=== PATIENT | female | born 1945 | race Caucasian/White ===

== ENCOUNTER 2023-09-12 10:00 | Outpatient (RCR) | payer MEDICARE, SELFPAY ==
[2023-08-29 09:21] VITALS: BP 163/79; PULSE 78; RESP 18; TEMP 36.4; BMI 49.6
--- NOTE | 2023-08-29 09:48 | PCM.WC.HP ---
History of Present Illness Date of Service: 08/29/23 Chief Complaint: Posterior left lower extremity ulceration History of Wound: Patient is a 77-year-old female with PMHx of DM type II, CAD, GERD, diverticulosis of colon, HTN, mixed hyperlipidemia. In June 2023 patient was exiting car and bumped the back of her leg on the car door creating a small ulceration at the posterior aspect of the left leg. She stated the scab came off however was not healing and thus followed up with her PCP. At this time she was seen by nurse practitioner and patient informed her that she tends to get wounds anytime she bumps her legs. States site would blister after traumatic injury and open. She states this wound is tender to the touch and she has been soaking in Epsom salts. Due to failure to progress in healing of the last 5 weeks duration she was referred to the wound care center. Patient denies wearing compression stockings. She denies N/V/F/chills. She denies further complaints. PFSH Allergy/AdvReac Type Severity Reaction Status Date / Time amoxicillin Allergy Hives Verified 08/29/23 09:21 Social History Smoking Status: Never smoker ROS Constitutional Constitutional: Denies anorexia, change in weight, chills, fatigue or fever(s) Eyes Eyes: Denies blurry vision, change in vision or double vision ENT HEENT: Denies dysphagia, nasal congestion or nasal discharge Cardiovascular Cardiovascular: Denies chest pain, claudication or palpitations Respiratory/Chest Respiratory/Chest: Denies cough, shortness of breath at rest or wheezing Gastrointestinal Gastrointestinal: Denies abdominal pain, constipation, diarrhea, nausea or vomiting Genitourinary Genitourinary: Denies dysuria, hematuria or urinary urgency Musculoskeletal Musculoskeletal: Denies joint pain, joint stiffness or joint swelling Integumentary Integumentary: Denies lesions, pruritus or rash Neurologic Neurologic: Denies dizziness, numbness or seizures Psychiatric Psychiatric: Denies depression Endocrine Endocrinology: Denies cold intolerance or heat intolerance Hematologic/Lymphatic Hematologic/Lymphatic: Denies easy bleeding or easy bruising Vital Signs Vital Signs Vital Signs: 08/29/23 09:21 Temperature 97.6 F L Temperature Source Temporal Pulse Rate 78 Respiratory Rate 18 Blood Pressure 163/79 H Blood Pressure Mean 107 Blood Pressure Source Monitor Blood Pressure Position Semi-Fowlers Blood Pressure Location Left Arm Oxygen Delivery Method Room Air Weight Weight: 127.006 kg Body Mass Index (BMI) 49.6 Physical Exam Const alert, oriented x3, no apparent distress and well nourished General Appearance: cooperative HEENT normocephalic Eyes General Eye: normal appearance of both eyes Neck General: normal visual inspection Lymph Lymphatic: no lymphadenopathy noted Lymphatic Narrative: Lipolymphedema noted bilateral lower extremity Resp normal respiratory effort Cardio regular rate and regular rhythm Extremity normal capillary refill, no joint enlargement, no calf tenderness and no pedal edema Extremity Narrative: Vascular: DP and PT pulses weakly palpable secondary to soft tissue edema bilateral. Capillary fill time is adequate to the digits bilateral. Normal temperature gradient bilateral. Hair growth is absent to the digits bilateral. Dermatological: There are varicosities noted about the medial ankle and lower extremity bilateral. There is reddish discoloration/stasis dermatitis about the lower extremity at the level of the mid calf secondary to chronic venous insufficiency with hemosiderin deposition. Posterior left lower extremity there is noted to be multiple superficial excoriations secondary to traumatic injury. These ulceration sites demonstrate serous crusting secondary to continued skin weeping/drainage. No signs of infection. There is a multicolored patch noted to the lateral left lower extremity consistent with tattoo. Positive Stemmer sign bilateral second digit. There is some edema noted of the lower extremities however tissue is also dense to palpation. There is a component of Lipolymphedema of bilateral lower extremity. 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 Neurological: Motor function intact, gross sensation intact, light touch sensation intact, no focal deficits. Musculoskeletal: Muscle strength 5 of 5 age-appropriate. Decreased range of motion of the ankle joint in dorsiflexion with the knee extended without pain or crepitus bilateral. Decreased range of motion of the first metatarsophalangeal joint without pain or crepitus bilateral. Skin no rashes or lesions noted and no jaundice General Skin Exam: venous stasis and dermatitis Neuro moves all extremities Debridement Note Debridement Note No debridement was completed: No debridement was completed today Post-Debridement Measurements and Additional Note: Post-Debridement Measurements/Treatment JOSÉ LUIS - Nurse 1 - General Ulcer Assessment Start: 08/29/23 09:05 Freq: Status: Active Protocol: [email or web address] Activity Type Activity Date Activity User E-sign Co-sign Detail Recorded Client Recorded Date Recorded By Document 08/29/23 09:21 KW Desktop 08/29/23 09:27 KW Edit Result 08/29/23 09:21 KW (1) Desktop 08/29/23 09:42 KW (1) Right - Popliteal Doppler => Inaudible - Posterior Tibial Doppler => Inaudible - Hair Growth on Legs => No - Hair Growth on Toes => No - Temperature of Extremity => Cool - Capillary Refill => Less than 3 => Seconds Left - Posterior Tibial Palpable => No - Posterior Tibial Doppler => Monophasic - Dorsalis Pedis Palpable => Yes - Dorsalis Pedis Doppler => Monophasic - Extremity Color => Red,Hyperpigmented - Hair Growth on Legs => No - Hair Growth on Toes => No - Temperature of Extremity => Cool - Capillary Refill => Less than 3 => Seconds - Thick => No - Discolored => No - Deformed => No - Improper Length & Hygeine => No 08/29/23 09:21 WC - Today's Visit Information Type of service Initial Visit Arrival Mode Ambulatory Patient Identification Verified (Name & Yes ) Finger Stick Blood Sugar(mg/dl) (if 160 indicated): Blood Sugar Stated by Patient Height and Weight Height 5 ft 3 in Weight 127.006 kg Weight in Pounds 280.0 lbs Weight Measurement Method Estimated by Patient Body Mass Index (BMI) 49.6 BMI Classification Obese BSA - Napoleon 2.23 Vital Signs Temperature (97.8 F-99.1 F) 97.6 F L Temperature Source Temporal Pulse Rate (60-100) 78 Pulse Location Monitor Respiratory Rate (12-18) 18 Respiratory rate source Observation Oxygen Delivery Method Room Air Blood Pressure (90/60-120/80) 163/79 H Blood Pressure Mean 107 Source Monitor Position Semi-Fowlers Blood Pressure Location Left Arm History Since Last Visit- (Skip if this is Patient's initial visit) Left Footwear Regular Shoe Right Footwear Regular Shoe Pain Scale: 0-10 Numeric Is Patient Pain Free? Yes Lower Extremity Assessment/ Foot Assessment/ Toe Nail Assessment Right -Popliteal Doppler Inaudible -Posterior Tibial Doppler Inaudible -Hair Growth on Legs No -Hair Growth on Toes No -Temperature of Extremity Cool -Capillary Refill Less than 3 Seconds Left -Posterior Tibial Palpable No -Posterior Tibial Doppler Monophasic -Dorsalis Pedis Palpable Yes -Dorsalis Pedis Doppler Monophasic -Extremity Color Red, Hyperpigmented -Hair Growth on Legs No -Hair Growth on Toes No -Temperature of Extremity Cool -Capillary Refill Less than 3 Seconds -Thick No -Discolored No -Deformed No -Improper Length & Hygeine No Communication Assessment Preferred language Kazakh Able to Read Yes Able to Write Yes Communication Tools None Caregiver Communication Skills No Impairment Impairment Right Hearing Abillity Normal Left Hearing Abillity Normal Visual Assistive Devices Glasses Teaching Assessment Preferences Verbal,Written, Demonstration Barriers to Learning None Readiness To Learn Excellent Willingness to Engage in Self Management High Activies Readiness to Engage in Self Management High Activities Anxiety Level Calm Cooperation Cooperative Perception Coherent Interest in Health Problem Asks Questions Education Importance Acknowledges Need Does Patient Smoke tobacco or other No substances Smoking Status Never smoker Is Patient Diabetic Yes Functional Assessment Recent Decline in Ability to Perform Denies Any Declines Assistive Device With Patient No Culture/Pentecostalism/Draw Frame Operator Cultural/Pentecostalism Needs that may affect No Treatment Plan Would you allow our hospital equipment hire manager to No meet you for the purpose of spiritual/ emotional support? Draw Frame Operator to contact place of gnosticist No WC - Nurse 1 - General Ulcer Measurement Start: 08/29/23 09:05 Freq: Status: Active Protocol: Activity Type Activity Date Activity User E-sign Co-sign Detail Recorded Client Recorded Date Recorded By Document 08/29/23 09:21 KW Desktop 08/29/23 09:27 KW 08/29/23 09:21 Wound Center Nurse 1 #1 POST LT LOWER LEG -Current Size (cm) - Length 4.5 -Current Size (cm) - Width 5 -Current Size (cm) - Depth 0.1 -Total Square Cm 22.5 -Exudate Amt Small -Exudate Type Serosanguineous -Wound Margin Indistinct, Non -Visible -Granulation Amt Large (67-100%) -Granulation Quality Pyote -Structure Exposed None/Limited to Skin Breakdown -Texture (Jewell-wound Skin Appearance) No Abnormality, Friable -Moisture (Jewell-wound Skin Appearance) Assessed -Color (Jewell-wound Skin Appearance) Assessed, Erythema -Temperature (Jewell-wound Skin No Abnormality Appearance) (Pt Warm) -Ulcer Cleansing Rinsed/ Irrigated with Saline -Foul Odor after Cleansing No -Anesthetic Used 5% Lidocaine Gel Right Calf (cm) 50.5 Right Ankle (cm) 30.5 Left Calf (cm) 52.5 Left Ankle (cm) 32 Assessment/Plan Assessment/Plan (1) Non-pressure chronic ulcer of left calf with fat layer exposed: CODE(S): L97.222 - Non-pressure chronic ulcer of left calf with fat layer exposed (2) Venous insufficiency (chronic) (peripheral): CODE(S): I87.2 - Venous insufficiency (chronic) (peripheral) (3) 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: CODE(S): I89.0 - Lymphedema, not elsewhere classified; R60.9 - Edema, unspecified (4) Bilateral edema of lower extremity: CODE(S): R60.0 - Localized edema (5) Type 2 diabetes mellitus without complications: CODE(S): E11.9 - Type 2 diabetes mellitus without complications (6) Hyperlipidemia, unspecified: CODE(S): E78.5 - Hyperlipidemia, unspecified (7) Essential (primary) hypertension: CODE(S): I10 - Essential (primary) hypertension (8) CAD (coronary artery disease): CODE(S): I25.10 - Atherosclerotic heart disease of [place] coronary artery without angina pectoris PLAN: Plan Patient seen and evaluated Previous ulceration noted to the anterior aspect/pretibial left lower extremity has healed at this time with full epithelialization. There is noted scarring secondary to the healing of the previous wound site. Skin is intact however still friable as this is new skin formation. No signs of infection. No debridement performed today. Patient is noted to have lipodermatosclerosis and component of Lipo lymphedema leading to difficulty with continued lower extremity swelling and recurrent wounds following trauma to the lower extremity. Bilateral Unna boot was applied to the lower extremities. She was instructed to not get the boots wet. Discussed if she does get them wet to return to the wound care center for dressing change and application of an Unna boot. She voices understanding of this. Discussed continued elevation to aid in edema control. Discussed once sites have healed recommendation should be considered for lymphedema pump and bilateral compression stockings. Discussed adequate protein intake to aid in wound healing. Irvin supplementation recommended. Discussed adequate diabetic diet to continue proper glycemic control. Discussed this will aid in wound healing. Encouraged daily exercise and lifestyle modification for weight reduction. Discussed continuing oral antibiotic clindamycin 300 mg 4 times daily and ciprofloxacin 500 mg twice daily to complete her 10-day course to full completion. Discussed signs and symptoms of infection to observe for. Discussed if redness continues to increase about the wound site spreading up the leg, there is purulent drainage from the wound site, increasing foul odor from the wound, or if she experiences fever greater than 101 degree accompanied by nausea, vomiting, chills that these are signs of a progressing infection and she should report to the ED to receive IV antibiotics and for further evaluation. She voices understanding of this today. The following work up and care recommendations were made: Dressing: Bilateral Unna boot dressing for compression Wash: Do not get wet Tissue growth optimization: None Offload: Continue to elevate lower extremities at all times of rest pad and protect area of the posterior left lower extremity with pillow Vascular: Weakly palpable DP and PT pulses secondary to edema however I do not feel vascular status is impacting healing. Edema: Continue to elevate bilateral lower extremities, once wounds are healed consideration should be given to compression stockings and lymphedema pump Infection: No signs of infection. Patient finishing oral antibiotic course clindamycin/ciprofloxacin and recommended to complete in its entirety Pain: May take Tylenol extra strength for any discomfort Host factors: DM type II, CAD, HTN, HLD, chronic venous insufficiency, Lipo lymphedema. I answered all the patient's questions. To return to the wound healing center in 1 week or call sooner if the patient has any questions or concerns.
[2023-09-02 11:18] VITALS: BP 157/56; PULSE 75; RESP 16; TEMP 36.5; BMI 49.6
--- NOTE | 2023-09-05 09:18 | PCM.WC.PN ---
History of Present Illness Date of Service: 09/05/23 Chief Complaint: Posterior left lower extremity ulceration History of Wound: Patient is a 77-year-old female with PMHx of DM type II, CAD, GERD, diverticulosis of colon, HTN, mixed hyperlipidemia. In June 2023 patient was exiting car and bumped the back of her leg on the car door creating a small ulceration at the posterior aspect of the left leg. She stated the scab came off however was not healing and thus followed up with her PCP. At this time she was seen by nurse practitioner and patient informed her that she tends to get wounds anytime she bumps her legs. States site would blister after traumatic injury and open. She states this wound is tender to the touch and she has been soaking in Epsom salts. Due to failure to progress in healing of the last 5 weeks duration she was referred to the wound care center. Patient denies wearing compression stockings. She denies N/V/F/chills. She denies further complaints. Subjective Subjective This is a 77-year-old female who presents to the wound care center today for follow-up of a posterior left lower extremity ulceration secondary to chronic venous stasis. She states she kept the Unna boots on and did have them changed this past Saturday. She does notice improvement in swelling today. She denies constitutional symptoms. Denies further complaints. Objective Data Objective Data Vital Signs: Vital Signs Temp Pulse Resp BP O2 Del Method 97.7 F L 75 16 157/56 H Room Air 09/02/23 11:18 09/02/23 11:18 09/02/23 11:18 09/02/23 11:18 09/02/23 11:18 Oxygen Delivery Method Room Air Weight: 127.006 kg Body Mass Index (BMI) 49.6 Physical Exam Const alert, oriented x3, no apparent distress and well nourished General Appearance: cooperative HEENT normocephalic Eyes General Eye: normal appearance of both eyes Neck General: normal visual inspection Lymph Lymphatic: no lymphadenopathy noted Lymphatic Narrative: Lipolymphedema noted bilateral lower extremity Resp normal respiratory effort Cardio regular rate and regular rhythm Extremity normal capillary refill, no joint enlargement, no calf tenderness and no pedal edema Extremity Narrative: Vascular: DP and PT pulses weakly palpable secondary to soft tissue edema bilateral. Capillary fill time is adequate to the digits bilateral. Normal temperature gradient bilateral. Hair growth is absent to the digits bilateral. Dermatological: There are varicosities noted about the medial ankle and lower extremity bilateral. There is reddish discoloration/stasis dermatitis about the lower extremity at the level of the mid calf secondary to chronic venous insufficiency with hemosiderin deposition. Posterior left lower extremity there is noted to be multiple superficial excoriations secondary to traumatic injury. These ulceration sites demonstrate serous crusting secondary to continued skin weeping/drainage. No signs of infection. There is a multicolored patch noted to the lateral left lower extremity consistent with tattoo. Positive Stemmer sign bilateral second digit. There is some edema noted of the lower extremities however tissue is also dense to palpation. There is a component of Lipolymphedema of bilateral lower extremity. 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 Neurological: Motor function intact, gross sensation intact, light touch sensation intact, no focal deficits. Musculoskeletal: Muscle strength 5 of 5 age-appropriate. Decreased range of motion of the ankle joint in dorsiflexion with the knee extended without pain or crepitus bilateral. Decreased range of motion of the first metatarsophalangeal joint without pain or crepitus bilateral. Skin no rashes or lesions noted and no jaundice General Skin Exam: venous stasis and dermatitis Neuro moves all extremities Debridement Note Debridement Note No debridement was completed: No debridement was completed today Post-Debridement Measurements and Additional Note: Post-Debridement Measurements/Treatment WC - Nurse 1 - General Ulcer Assessment Start: 08/29/23 09:05 Freq: Status: Active Protocol: .LOWEXT Activity Type Activity Date Activity User E-sign Co-sign Detail Recorded Client Recorded Date Recorded By Document 08/29/23 09:21 KW Desktop 08/29/23 09:27 KW Edit Result 08/29/23 09:21 KW (1) Desktop 08/29/23 09:42 KW Document 09/02/23 11:18 BMF Desktop 09/02/23 11:19 BMF (1) Right - Popliteal Doppler => Inaudible - Posterior Tibial Doppler => Inaudible - Hair Growth on Legs => No - Hair Growth on Toes => No - Temperature of Extremity => Cool - Capillary Refill => Less than 3 => Seconds Left - Posterior Tibial Palpable => No - Posterior Tibial Doppler => Monophasic - Dorsalis Pedis Palpable => Yes - Dorsalis Pedis Doppler => Monophasic - Extremity Color => Red,Hyperpigmented - Hair Growth on Legs => No - Hair Growth on Toes => No - Temperature of Extremity => Cool - Capillary Refill => Less than 3 => Seconds - Thick => No - Discolored => No - Deformed => No - Improper Length & Hygeine => No 08/29/23 09/02/23 09:21 11:18 WC - Today's Visit Information Type of service Initial Visit Nurse-only Visit Arrival Mode Ambulatory Ambulatory Transfer Assistance None Patient Identification Verified (Name & Yes Yes ) Patient Requires Transmission-Based No Precautions Finger Stick Blood Sugar(mg/dl) (if 160 indicated): Blood Sugar Stated by Patient Height and Weight Height 5 ft 3 in Weight 127.006 kg Weight in Pounds 280.0 lbs Weight Measurement Method Estimated by Patient Body Mass Index (BMI) 49.6 49.6 BMI Classification Obese Obese BSA - Napoleon 2.23 Vital Signs Temperature (97.8 F-99.1 F) 97.6 F L 97.7 F L Temperature Source Temporal Temporal Pulse Rate (60-100) 78 75 Pulse Location Monitor Monitor Respiratory Rate (12-18) 18 16 Respiratory rate source Observation Observation Oxygen Delivery Method Room Air Room Air Blood Pressure (90/60-120/80) 163/79 H 157/56 H Blood Pressure Mean (mm Hg) 107 89 Source Monitor Monitor Position Semi-Fowlers Sitting Blood Pressure Location Left Arm Right Forearm History Since Last Visit- (Skip if this is Patient's initial visit) Have you changed medications since your No last visit? Any new allergies or adverse reactions No Had a fall/change in ADL's that may No increase risk of falls Signs or symptoms of abuse and/or No neglect since last visit Have you been in the hospital since your No last visit? Has dressing in place as prescribed Yes Has compression in place as prescribed Yes Has offloadiing in place as prescribed N/A Experienced any changes in pain level or No management Left Footwear Regular Shoe Regular Shoe Right Footwear Regular Shoe Regular Shoe Pain Scale: 0-10 Numeric Is Patient Pain Free? Yes Yes Lower Extremity Assessment/ Foot Assessment/ Toe Nail Assessment Right -Popliteal Doppler Inaudible -Posterior Tibial Doppler Inaudible -Hair Growth on Legs No -Hair Growth on Toes No -Temperature of Extremity Cool -Capillary Refill Less than 3 Seconds Left -Posterior Tibial Palpable No -Posterior Tibial Doppler Monophasic -Dorsalis Pedis Palpable Yes -Dorsalis Pedis Doppler Monophasic -Extremity Color Red, Hyperpigmented -Hair Growth on Legs No -Hair Growth on Toes No -Temperature of Extremity Cool -Capillary Refill Less than 3 Seconds -Thick No -Discolored No -Deformed No -Improper Length & Hygeine No Communication Assessment Preferred language Hebrew Able to Read Yes Able to Write Yes Communication Tools None Caregiver Communication Skills No Impairment Impairment Right Hearing Abillity Normal Left Hearing Abillity Normal Visual Assistive Devices Glasses Teaching Assessment Preferences Verbal,Written, Demonstration Barriers to Learning None Readiness To Learn Excellent Willingness to Engage in Self Management High Activies Readiness to Engage in Self Management High Activities Anxiety Level Calm Cooperation Cooperative Perception Coherent Interest in Health Problem Asks Questions Education Importance Acknowledges Need Does Patient Smoke tobacco or other No substances Smoking Status Never smoker Is Patient Diabetic Yes Functional Assessment Recent Decline in Ability to Perform Denies Any Declines Assistive Device With Patient No 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 No WC - Nurse 1 - General Ulcer Measurement Start: 08/29/23 09:05 Freq: Status: Active Protocol: Activity Type Activity Date Activity User E-sign Co-sign Detail Recorded Client Recorded Date Recorded By Document 08/29/23 09:21 [email or web address] 08/29/23 09:27 [employer] Document 09/02/23 11:18 [facility] Desktop 09/02/23 11:19 [facility] 08/29/23 09/02/23 09:21 11:18 Wound Center Nurse 1 #1 POST LT LOWER LEG -Current Size (cm) - Length 4.5 -Current Size (cm) - Width 5 -Current Size (cm) - Depth 0.1 -Total Square Cm 22.5 -Exudate Amt Small -Exudate Type Serosanguineous -Wound Margin Indistinct, Non -Visible -Granulation Amt Large (67-100%) -Granulation Quality [place] -Structure Exposed None/Limited to Skin Breakdown -Texture (Jewell-wound Skin Appearance) No Abnormality, Friable -Moisture (Jewell-wound Skin Appearance) Assessed -Color (Jewell-wound Skin Appearance) Assessed, Erythema -Temperature (Jewell-wound Skin No Abnormality Appearance) (Pt Warm) -Ulcer Cleansing Rinsed/ Irrigated with Saline -Foul Odor after Cleansing No -Anesthetic Used 5% Lidocaine Gel Lower Limb Edema Present Yes Right Calf (cm) 50.5 48.5 Right Ankle (cm) 30.5 28.8 Left Calf (cm) 52.5 50.3 Left Ankle (cm) 32 29.3 WC - Nurse 2 - General Ulcer CM Notes Start: 08/29/23 09:05 Freq: Status: Active Protocol: Activity Type Activity Date Activity User E-sign Co-sign Detail Recorded Client Recorded Date Recorded By Document 08/29/23 09:59 [facility] Desktop 08/29/23 10:06 F 08/29/23 09:59 Wound Center Nurse 2 #1 POST LT LOWER LEG -Time 09:59 -Correct Patient Yes -Tunneling No -Undermining/Tunneling No -Circular Undermining No -Wound/Ulcer Outcome Not Healed -Bleeding Controlled with NA Pain Scale: 0-10 Numeric Is Patient Pain Free? Yes WC - Nurse 3 - General Ulcer D/C NN Start: 08/29/23 09:05 Freq: Status: Active Protocol: Activity Type Activity Date Activity User E-sign Co-sign Detail Recorded Client Recorded Date Recorded By Document 08/29/23 10:25 DL Desktop 08/29/23 10:26 DL Edit Result 08/29/23 10:25 DL (1) [id number] 09/02/23 15:13 BM[facility] Document 09/02/23 11:18 [facility] Desktop 09/02/23 11:19 BMF (1) jannette - Multi-Layered Wrap Application Multi-Layer Comp - => Unna Boot - Bilat ($) => Bilateral ($) 08/29/23 09/02/23 10:25 11:18 Wound Care Center Nurse 3 #1 POST LT LOWER LEG -Ulcer Cleansing Soap and Water -Foul Odor after Cleansing No jannette -Multi-Layered Wrap Application Unna Boot - Bilateral ($) Treatment Response Procedure Tolerated Well Vital Signs Temperature (97.8 F-99.1 F) 97.7 F L Temperature Source Temporal Pulse Rate (60-100) 75 Pulse Location Monitor Respiratory Rate (12-18) 16 Respiratory rate source Observation Oxygen Delivery Method Room Air Blood Pressure (90/60-120/80) 157/56 H Blood Pressure Mean (mm Hg) 89 Source Monitor Position Sitting Blood Pressure Location Right Forearm Pain Scale: 0-10 Numeric Is Patient Pain Free? 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: CODE(S): I89.0 - Lymphedema, not elsewhere classified; R60.9 - Edema, unspecified (4) Bilateral edema of lower extremity: CODE(S): R60.0 - Localized edema (5) Type 2 diabetes mellitus without complications: CODE(S): E11.9 - Type 2 diabetes mellitus without complications (6) Hyperlipidemia, unspecified: CODE(S): E78.5 - Hyperlipidemia, unspecified (7) Essential (primary) hypertension: CODE(S): I10 - Essential (primary) hypertension (8) CAD (coronary artery disease): CODE(S): I25.10 - Atherosclerotic heart disease of [place] coronary artery without angina pectoris PLAN: Plan Patient seen and evaluated Previous ulceration noted to the anterior aspect/pretibial left lower extremity has healed at this time with full epithelialization. There is noted scarring secondary to the healing of the previous wound site. Skin is intact however still friable as this is new skin formation. No signs of infection. No debridement performed today. There is improvement in her edema, ulceration, and surrounding tissue versus previous visit with use of Unna boot wrapping/compression. She is close to healing the ulceration. Patient is noted to have lipodermatosclerosis and component of Lipo lymphedema leading to difficulty with continued lower extremity swelling and recurrent wounds following trauma to the lower extremity. Bilateral Unna boot was applied to the lower extremities. She was instructed to not get the boots wet. Discussed if she does get them wet to return to the wound care center for dressing change and application of an Unna boot. She voices understanding of this. Discussed continued elevation to aid in edema control. Discussed once sites have healed recommendation should be considered for lymphedema pump and bilateral compression stockings. Discussed adequate protein intake to aid in wound healing. Irvin supplementation recommended. Discussed adequate diabetic diet to continue proper glycemic control. Discussed this will aid in wound healing. Encouraged daily exercise and lifestyle modification for weight reduction. Discussed continuing oral antibiotic clindamycin 300 mg 4 times daily and ciprofloxacin 500 mg twice daily to complete her 10-day course to full completion. Discussed signs and symptoms of infection to observe for. Discussed if redness continues to increase about the wound site spreading up the leg, there is purulent drainage from the wound site, increasing foul odor from the wound, or if she experiences fever greater than 101 degree accompanied by nausea, vomiting, chills that these are signs of a progressing infection and she should report to the ED to receive IV antibiotics and for further evaluation. She voices understanding of this today. The following work up and care recommendations were made: Dressing: Bilateral Unna boot dressing for compression Wash: Do not get wet Tissue growth optimization: None Offload: Continue to elevate lower extremities at all times of rest pad and protect area of the posterior left lower extremity with pillow Vascular: Weakly palpable DP and PT pulses secondary to edema however I do not feel vascular status is impacting healing. Edema: Continue to elevate bilateral lower extremities, once wounds are healed consideration should be given to compression stockings and lymphedema pump Infection: No signs of infection. Patient finishing oral antibiotic course clindamycin/ciprofloxacin and recommended to complete in its entirety Pain: May take Tylenol extra strength for any discomfort Host factors: DM type II, CAD, HTN, HLD, chronic venous insufficiency, Lipo lymphedema. I answered all the patient's questions. To return to the wound healing center in 1 week or call sooner if the patient has any questions or concerns.
[2023-09-05 09:30] VITALS: BP 145/65; PULSE 84; RESP 18; TEMP 36.6; BMI 49.6
[2023-09-09 11:50] VITALS: BP 169/66; PULSE 80; RESP 18; TEMP 36.4; BMI 49.6
[2023-09-12 08:48] VITALS: BP 166/86; PULSE 72; RESP 18; TEMP 36; BMI 49.6
--- NOTE | 2023-09-12 09:37 | PN.PCM_ITS ---
History of Present Illness Date of Service: 09/12/23 Chief Complaint: Posterior left lower extremity ulceration History of Wound: Patient is a 77-year-old female with PMHx of DM type II, CAD, GERD, diverticulosis of colon, HTN, mixed hyperlipidemia. In June 2023 patient was exiting car and bumped the back of her leg on the car door creating a small ulceration at the posterior aspect of the left leg. She stated the scab came off however was not healing and thus followed up with her PCP. At this time she was seen by nurse practitioner and patient informed her that she tends to get wounds anytime she bumps her legs. States site would blister after traumatic injury and open. She states this wound is tender to the touch and she has been soaking in Epsom salts. Due to failure to progress in healing of the last 5 weeks duration she was referred to the wound care center. Patient denies wearing compression stockings. She denies N/V/F/chills. She denies further complaints. Subjective Subjective This is a 77-year-old female who presents to the wound care center today for follow-up of a posterior left lower extremity ulceration secondary to chronic venous stasis. She states she kept the Unna boots on and did have them changed this past Saturday. She does notice improvement in swelling today and believes the wound is healed. She states she is to get vascular studies done after this visit today. She denies constitutional symptoms. Denies further complaints. Objective Data Objective Data Vital Signs: Vital Signs Temp Pulse Resp BP O2 Del Method 96.8 F L 72 18 166/86 H Room Air 09/12/23 08:48 09/12/23 08:48 09/12/23 08:48 09/12/23 08:48 09/12/23 08:48 Oxygen Delivery Method Room Air Weight: 127.006 kg Body Mass Index (BMI) 49.6 Physical Exam Const alert, oriented x3, no apparent distress and well nourished General Appearance: cooperative HEENT normocephalic Eyes General Eye: normal appearance of both eyes Neck General: normal visual inspection Lymph Lymphatic: no lymphadenopathy noted Lymphatic Narrative: Lipolymphedema noted bilateral lower extremity Resp normal respiratory effort Cardio regular rate and regular rhythm Extremity normal capillary refill, no joint enlargement, no calf tenderness and no pedal edema Extremity Narrative: Vascular: DP and PT pulses weakly palpable secondary to soft tissue edema bilateral. Capillary fill time is adequate to the digits bilateral. Normal temperature gradient bilateral. Hair growth is absent to the digits bilateral. Dermatological: There are varicosities noted about the medial ankle and lower extremity bilateral. There is reddish discoloration/stasis dermatitis about the lower extremity at the level of the mid calf secondary to chronic venous insufficiency with hemosiderin deposition. Posterior left lower extremity there is noted to be multiple superficial excoriations secondary to traumatic injury which have now healed. No signs of infection. There is a multicolored patch noted to the lateral left lower extremity consistent with tattoo. Positive Stemmer sign bilateral second digit. There is some edema noted of the lower extremities however tissue is also dense to palpation. There is a component of Lipolymphedema of bilateral lower extremity. 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 Neurological: Motor function intact, gross sensation intact, light touch sensation intact, no focal deficits. Musculoskeletal: Muscle strength 5 of 5 age-appropriate. Decreased range of motion of the ankle joint in dorsiflexion with the knee extended without pain or crepitus bilateral. Decreased range of motion of the first metatarsophalangeal joint without pain or crepitus bilateral. Skin no rashes or lesions noted and no jaundice General Skin Exam: venous stasis and dermatitis Neuro moves all extremities Debridement Note Debridement Note No debridement was completed: No debridement was completed today Post-Debridement Measurements and Additional Note: Post-Debridement Measurements/Treatment WC - Nurse 1 - General Ulcer Assessment Start: 08/29/23 09:05 Freq: Status: Active Protocol: CAROLYN Activity Type Activity Date Activity User E-sign Co-sign Detail Recorded Client Recorded Date Recorded By Document 08/29/23 09:21 KW Desktop 08/29/23 09:27 KW Edit Result 08/29/23 09:21 KW (1) Desktop 08/29/23 09:42 KW Document 09/02/23 11:18 BMF Desktop 09/02/23 11:19 BMF Document 09/05/23 09:30 MT Desktop 09/05/23 09:44 MT Document 09/09/23 11:50 KW Desktop 09/09/23 11:55 KW Document 09/12/23 08:48 GM Desktop 09/12/23 09:00 GM (1) Right - Popliteal Doppler => Inaudible - Posterior Tibial Doppler => Inaudible - Hair Growth on Legs => No - Hair Growth on Toes => No - Temperature of Extremity => Cool - Capillary Refill => Less than 3 => Seconds Left - Posterior Tibial Palpable => No - Posterior Tibial Doppler => Monophasic - Dorsalis Pedis Palpable => Yes - Dorsalis Pedis Doppler => Monophasic - Extremity Color => Red,Hyperpigmented - Hair Growth on Legs => No - Hair Growth on Toes => No - Temperature of Extremity => Cool - Capillary Refill => Less than 3 => Seconds - Thick => No - Discolored => No - Deformed => No - Improper Length & Hygeine => No 08/29/23 09/02/23 09/05/23 09:21 11:18 09:30 WC - Today's Visit Information Type of service Initial Visit Nurse-only Follow-up Visit Visit (Physician/BIOLOGY RESEARCH ASSISTANT ) Arrival Mode Ambulatory Ambulatory Ambulatory Transfer Assistance None Accompanied by self Patient Identification Verified (Name & Yes Yes Yes ) Patient Requires Transmission-Based No Precautions Safety Precautions Fall Prevention Finger Stick Blood Sugar(mg/dl) (if 160 indicated): Blood Sugar Stated by Patient Height and Weight Height 5 ft 3 in Weight 127.006 kg Weight in Pounds 280.0 lbs Weight Measurement Method Estimated by Patient Body Mass Index (BMI) 49.6 49.6 49.6 BMI Classification Obese Obese Obese BSA - Napoleon 2.23 Vital Signs Temperature (97.8 F-99.1 F) 97.6 F L 97.7 F L 98 F Temperature Source Temporal Temporal Temporal Pulse Rate (60-100) 78 75 84 Pulse Location Monitor Monitor Monitor Respiratory Rate (12-18) 18 16 18 Respiratory rate source Observation Observation Observation Oxygen Delivery Method Room Air Room Air Room Air Blood Pressure (90/60-120/80) 163/79 H 157/56 H 145/65 H Blood Pressure Mean (mm Hg) 107 89 91 Source Monitor Monitor Monitor Position Semi-Fowlers Sitting Sitting Blood Pressure Location Left Arm Right Forearm Left Arm History Since Last Visit- (Skip if this is Patient's initial visit) Have you changed medications since your No last visit? Any new allergies or adverse reactions No Had a fall/change in ADL's that may No increase risk of falls Signs or symptoms of abuse and/or No neglect since last visit Have you been in the hospital since your No last visit? Has dressing in place as prescribed Yes Yes Has compression in place as prescribed Yes Yes Has offloadiing in place as prescribed N/A N/A Experienced any changes in pain level or No No management Left Footwear Regular Shoe Regular Shoe Regular Shoe Right Footwear Regular Shoe Regular Shoe Regular Shoe Pain Scale: 0-10 Numeric Is Patient Pain Free? Yes Yes Yes Lower Extremity Assessment/ Foot Assessment/ Toe Nail Assessment Right -Popliteal Doppler Inaudible -Posterior Tibial Doppler Inaudible -Hair Growth on Legs No -Hair Growth on Toes No -Temperature of Extremity Cool -Capillary Refill Less than 3 Seconds Left -Posterior Tibial Palpable No -Posterior Tibial Doppler Monophasic -Dorsalis Pedis Palpable Yes -Dorsalis Pedis Doppler Monophasic -Extremity Color Red, Hyperpigmented -Hair Growth on Legs No -Hair Growth on Toes No -Temperature of Extremity Cool -Capillary Refill Less than 3 Seconds -Thick No -Discolored No -Deformed No -Improper Length & Hygeine No Communication Assessment Preferred language Telugu Able to Read Yes Able to Write Yes Communication Tools None Caregiver Communication Skills No Impairment Impairment Right Hearing Abillity Normal Left Hearing Abillity Normal Visual Assistive Devices Glasses Teaching Assessment Preferences Verbal,Written, Demonstration Barriers to Learning None Readiness To Learn Excellent Willingness to Engage in Self Management High Activies Readiness to Engage in Self Management High Activities Anxiety Level Calm Cooperation Cooperative Perception Coherent Interest in Health Problem Asks Questions Education Importance Acknowledges Need Does Patient Smoke tobacco or other No substances Smoking Status Never smoker Is Patient Diabetic Yes Functional Assessment Recent Decline in Ability to Perform Denies Any Declines Assistive Device With Patient No Culture/Mormon/Grinder And Honer Operator Automatic Cultural/Mormon Needs that may affect No Treatment Plan Would you allow our hospital monitoring coordinator to No meet you for the purpose of spiritual/ emotional support? Grinder And Honer Operator Automatic to contact place of denominational No 09/09/23 09/12/23 11:50 08:48 WC - Today's Visit Information Type of service Nurse-only Follow-up Visit Visit (Physician/BIOLOGY RESEARCH ASSISTANT ) Arrival Mode Ambulatory Ambulatory Transfer Assistance None Accompanied by Patient Identification Verified (Name & Yes ) Patient Requires Transmission-Based Precautions Safety Precautions Finger Stick Blood Sugar(mg/dl) (if indicated): Blood Sugar Height and Weight Height Weight Weight in Pounds Weight Measurement Method Body Mass Index (BMI) 49.6 49.6 BMI Classification Obese Obese BSA - Napoleon Vital Signs Temperature (97.8 F-99.1 F) 97.6 F L 96.8 F L Temperature Source Temporal Temporal Pulse Rate (60-100) 80 72 Pulse Location Monitor Monitor Respiratory Rate (12-18) 18 18 Respiratory rate source Observation Observation Oxygen Delivery Method Room Air Room Air Blood Pressure (90/60-120/80) 169/66 H 166/86 H Blood Pressure Mean (mm Hg) 100 112 Source Monitor Position Sitting Blood Pressure Location Left Arm History Since Last Visit- (Skip if this is Patient's initial visit) Have you changed medications since your No No last visit? Any new allergies or adverse reactions No No Had a fall/change in ADL's that may No No increase risk of falls Signs or symptoms of abuse and/or No No neglect since last visit Have you been in the hospital since your No No last visit? Has dressing in place as prescribed Yes Yes Has compression in place as prescribed Yes Yes Has offloadiing in place as prescribed N/A N/A Experienced any changes in pain level or No No management Left Footwear Regular Shoe Regular Shoe Right Footwear Regular Shoe Regular Shoe Pain Scale: 0-10 Numeric Is Patient Pain Free? Yes Yes Lower Extremity Assessment/ Foot Assessment/ Toe Nail Assessment Right -Popliteal Doppler -Posterior Tibial Doppler -Hair Growth on Legs -Hair Growth on Toes -Temperature of Extremity -Capillary Refill Left -Posterior Tibial Palpable -Posterior Tibial Doppler -Dorsalis Pedis Palpable -Dorsalis Pedis Doppler -Extremity Color -Hair Growth on Legs -Hair Growth on Toes -Temperature of Extremity -Capillary Refill -Thick -Discolored -Deformed -Improper Length & Hygeine Communication Assessment Preferred language Able to Read Able to Write Communication Tools Caregiver Communication Skills Impairment Right Hearing Abillity Left Hearing Abillity Visual Assistive Devices Teaching Assessment Preferences Barriers to Learning Readiness To Learn Willingness to Engage in Self Management Activies Readiness to Engage in Self Management Activities Anxiety Level Cooperation Perception Interest in Health Problem Education Importance Does Patient Smoke tobacco or other substances Smoking Status Is Patient Diabetic Functional Assessment Recent Decline in Ability to Perform Assistive Device With Patient Culture/Mormon/Grinder And Honer Operator Automatic Cultural/Mormon Needs that may affect Treatment Plan Would you allow our hospital monitoring coordinator to meet you for the purpose of spiritual/ emotional support? Grinder And Honer Operator Automatic to contact place of denominational WC - Nurse 1 - General Ulcer Measurement Start: 08/29/23 09:05 Freq: Status: Active Protocol: Activity Type Activity Date Activity User E-sign Co-sign Detail Recorded Client Recorded Date Recorded By Document 08/29/23 09:21 KW Desktop 08/29/23 09:27 KW Document 09/02/23 11:18 BMF Desktop 09/02/23 11:19 BMF Document 09/05/23 09:30 MT Desktop 09/05/23 09:44 MT Document 09/09/23 11:50 KW Desktop 09/09/23 11:55 KW Document 09/12/23 08:48 GM Desktop 09/12/23 09:00 GM 08/29/23 09/02/23 09/05/23 09:21 11:18 09:30 Wound Center Nurse 1 #1 POST LT LOWER LEG -Current Size (cm) - Length 4.5 0.5 -Current Size (cm) - Width 5 0.6 -Current Size (cm) - Depth 0.1 0.1 -Total Square Cm 22.5 0.30 -Photo Taken -Epithelialization -Tunneling -Undermining/Tunneling -Exudate Amt Small Small -Exudate Type Serosanguineous Serous -Wound Margin Indistinct, Non Flat & Intact -Visible -Granulation Amt Large (67-100%) Large (67-100%) -Granulation Quality Colby Pale,Colby -Slough/Fibrin -Necrosis Amt None Present (0 %) -Structure Exposed None/Limited to Skin Breakdown -Texture (Jewell-wound Skin Appearance) No Abnormality, Assessed, Friable Localized Edema -Moisture (Jewell-wound Skin Appearance) Assessed Assessed, Maceration, Weeping -Color (Jewell-wound Skin Appearance) Assessed, Assessed Erythema -Temperature (Jewell-wound Skin No Abnormality No Abnormality Appearance) (Pt Warm) (Pt Warm) -Tenderness on Palpation (Jewell-wound No Skin Appearance) -Ulcer Cleansing Rinsed/ Rinsed/ Irrigated with Irrigated with Saline Saline -Foul Odor after Cleansing No -Anesthetic Used 5% Lidocaine 5% Lidocaine Gel Gel Lower Limb Edema Present Yes Right Calf (cm) 50.5 48.5 46.5 Right Ankle (cm) 30.5 28.8 28 Left Calf (cm) 52.5 50.3 48.5 Left Ankle (cm) 32 29.3 29 09/09/23 09/12/23 11:50 08:48 Wound Center Nurse 1 #1 POST LT LOWER LEG -Current Size (cm) - Length 0.1 -Current Size (cm) - Width 0.1 -Current Size (cm) - Depth 0.1 -Total Square Cm 0.01 -Photo Taken No -Epithelialization Large 67-100% -Tunneling No -Undermining/Tunneling No -Exudate Amt None Present -Exudate Type -Wound Margin Flat & Intact -Granulation Amt Large (67-100%) -Granulation Quality Red -Slough/Fibrin No -Necrosis Amt -Structure Exposed -Texture (Jewell-wound Skin Appearance) Assessed -Moisture (Jewell-wound Skin Appearance) Assessed -Color (Jewell-wound Skin Appearance) Not Assessed -Temperature (Jewell-wound Skin No Abnormality Appearance) (Pt Warm) -Tenderness on Palpation (Jewell-wound Skin Appearance) -Ulcer Cleansing Soap and Water -Foul Odor after Cleansing No -Anesthetic Used Lower Limb Edema Present Right Calf (cm) 29 48.5 Right Ankle (cm) 47.8 28.2 Left Calf (cm) 28.9 48.5 Left Ankle (cm) 48.4 28 WC - Nurse 2 - General Ulcer CM Notes Start: 08/29/23 09:05 Freq: Status: Active Protocol: Activity Type Activity Date Activity User E-sign Co-sign Detail Recorded Client Recorded Date Recorded By Document 08/29/23 09:59 [employer] 08/29/23 10:06 [employer] Document 09/05/23 10:21 [employer] Desktop 09/05/23 10:26 [employer] Document 09/12/23 09:19 [employer] Desktop 09/12/23 09:20 F 08/29/23 09/05/23 09/12/23 09:59 10:21 09:19 Wound Center Nurse 2 #1 POST LT LOWER LEG -Time 09:59 10:24 -Correct Patient Yes -Post Debridement (cm) - Length 0.1 -Post Debridement (cm) - Width 0.1 -Post Debridement (cm) - Depth 0.1 -Total Square (Post) (cm) 0.01 -Area of Debridement (cm) - Length 0.1 -Area of Debridement (cm) - Width 0.1 -Total Square (Area) (cm) 0.01 -Tunneling No -Undermining/Tunneling No -Circular Undermining No -Wound/Ulcer Outcome Not Healed Not Healed Healed- Epithelialized -Bleeding Controlled with NA NA Pain Scale: 0-10 Numeric Is Patient Pain Free? Yes Yes Yes WC - Nurse 3 - General Ulcer D/C NN Start: 08/29/23 09:05 Freq: Status: Active Protocol: Activity Type Activity Date Activity User E-sign Co-sign Detail Recorded Client Recorded Date Recorded By Document 08/29/23 10:25 DL Desktop 08/29/23 10:26 DL Edit Result 08/29/23 10:25 DL (1) [id number] 09/02/23 15:13 BMF Document 09/02/23 11:18 BMF Desktop 09/02/23 11:19 BMF Edit Result 09/02/23 11:18 BMF (2) [id number] 09/09/23 14:31 BMF Document 09/05/23 10:41 BMF Desktop 09/05/23 10:41 BMF Document 09/09/23 11:50 KW Desktop 09/09/23 11:55 KW Document 09/12/23 09:34 GM Desktop 09/12/23 09:35 GM (1) jannette - Multi-Layered Wrap Application Multi-Layer Comp - => Unna Boot - Bilat ($) => Bilateral ($) (2) #1 POST LT LOWER LEG - Ulcer Cleansing => Soap and Water jannette - Multi-Layered Wrap Application => Unna Boot - => Bilateral ($) Discharge Condition => Stable Ambulatory Status => Ambulatory Transportation => Private Auto 08/29/23 09/02/23 09/05/23 10:25 11:18 10:41 Wound Care Center Nurse 3 #1 POST LT LOWER LEG -Ulcer Cleansing Soap and Water Soap and Water Rinsed/ Irrigated with Saline -Foul Odor after Cleansing No No jannette -Lotion applied to leg before compression wrap -Multi-Layered Wrap Application Unna Boot - Unna Boot - Unna Boot - Bilateral ($) Bilateral ($) Bilateral ($) -Tubular Bandage -Size of Tubigrip Used -Size F ($) Treatment Response Procedure Procedure Tolerated Well Tolerated Well Vital Signs Temperature (97.8 F-99.1 F) 97.7 F L Temperature Source Temporal Pulse Rate (60-100) 75 Pulse Location Monitor Respiratory Rate (12-18) 16 Respiratory rate source Observation Oxygen Delivery Method Room Air Blood Pressure (90/60-120/80) 157/56 H Blood Pressure Mean (mm Hg) 89 Source Monitor Position Sitting Blood Pressure Location Right Forearm Pain Scale: 0-10 Numeric Is Patient Pain Free? Yes Yes Yes Teaching: Wound Center Aris tsangs -Person Taught -Teaching Method -Response to teaching WC - Visit Discharge Discharge Condition Stable Stable Stable Ambulatory Status Ambulatory Ambulatory Ambulatory Transportation Private Auto Private Auto Private Auto Medication Reconcilliation completed & provided to patient/care provider Clinical Summary of Care Provided 09/09/23 09/12/23 11:50 09:34 Wound Care Center Nurse 3 #1 POST LT LOWER LEG -Ulcer Cleansing Soap and Water -Foul Odor after Cleansing jannette -Lotion applied to leg before No compression wrap -Multi-Layered Wrap Application Unna Boot - Bilateral ($) -Tubular Bandage Double Layer -Size of Tubigrip Used Size F -Size F ($) 2 Treatment Response Vital Signs Temperature (97.8 F-99.1 F) 97.6 F L Temperature Source Temporal Pulse Rate (60-100) 80 Pulse Location Monitor Respiratory Rate (12-18) 18 Respiratory rate source Observation Oxygen Delivery Method Room Air Blood Pressure (90/60-120/80) 169/66 H Blood Pressure Mean (mm Hg) 100 Source Monitor Position Sitting Blood Pressure Location Left Arm Pain Scale: 0-10 Numeric Is Patient Pain Free? Yes Yes Teaching: Wound Center Aris tsangs -Person Taught Patient -Teaching Method Discussion -Response to teaching Verbalize understanding WC - Visit Discharge Discharge Condition Stable Stable Ambulatory Status Ambulatory Ambulatory Transportation Private Auto Private Auto Medication Reconcilliation completed & No Yes provided to patient/care provider Clinical Summary of Care Provided Yes Yes Assessment/Plan Assessment/Plan (1) Non-pressure chronic ulcer of left calf with fat layer exposed: CODE(S): L97.222 - Non-pressure chronic ulcer of left calf with fat layer exposed (2) Venous insufficiency (chronic) (peripheral): CODE(S): I87.2 - Venous insufficiency (chronic) (peripheral) (3) 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: CODE(S): I89.0 - Lymphedema, not elsewhere classified; R60.9 - Edema, unspecified (4) Bilateral edema of lower extremity: CODE(S): R60.0 - Localized edema (5) Type 2 diabetes mellitus without complications: CODE(S): E11.9 - Type 2 diabetes mellitus without complications (6) Hyperlipidemia, unspecified: CODE(S): E78.5 - Hyperlipidemia, unspecified (7) Essential (primary) hypertension: CODE(S): I10 - Essential (primary) hypertension (8) CAD (coronary artery disease): CODE(S): I25.10 - Atherosclerotic heart disease of ruby coronary artery without angina pectoris PLAN: Plan Patient seen and evaluated Previous ulceration noted to the anterior aspect/pretibial left lower extremity remains healed at this time with full epithelialization. There is noted scarring secondary to the healing of the previous wound site. Skin is intact however still friable as this is new skin formation. No signs of infection. No debridement performed today as patient has healed. There is improvement in her edema, her ulceration has healed today, and surrounding tissue has improved versus previous visit with use of Unna boot wrapping/compression. She will transition to compression stockings today. Patient is noted to have lipodermatosclerosis and component of Lipo lymphedema leading to difficulty with continued lower extremity swelling and recurrent wounds following trauma to the lower extremity. Discussed continued elevation to aid in edema control. Discussed sites have healed recommendation should be considered for lymphedema pump and bilateral compression stockings. Discussed adequate protein intake to aid in wound healing. Irvin supplementation recommended. Discussed adequate diabetic diet to continue proper glycemic control. Discussed this will aid in wound healing. Encouraged daily exercise and lifestyle modification for weight reduction. She has finished oral antibiotic clindamycin 300 mg 4 times daily and ciprofloxacin 500 mg twice daily to complete her 10-day course. Discussed signs and symptoms of infection to observe for. Discussed if redness continues to increase about the wound site spreading up the leg, there is purulent drainage from the wound site, increasing foul odor from the wound, or if she experiences fever greater than 101 degree accompanied by nausea, vomiting, chills that these are signs of a progressing infection and she should report to the ED to receive IV antibiotics and for further evaluation. She voices understanding of this today. The following work up and care recommendations were made: Dressing: None Wash: Soap and water Tissue growth optimization: None Offload: Continue to elevate lower extremities at all times of rest pad and protect area of the posterior left lower extremity with pillow Vascular: Weakly palpable DP and PT pulses secondary to edema however I do not feel vascular status is impacting healing. Edema: Continue to elevate bilateral lower extremities, once wounds are healed consideration should be given to compression stockings and lymphedema pump Infection: No signs of infection. Patient finishing oral antibiotic course clindamycin/ciprofloxacin and recommended to complete in its entirety Pain: May take Tylenol extra strength for any discomfort Host factors: DM type II, CAD, HTN, HLD, chronic venous insufficiency, Lipo lymphedema. At this time her wounds have healed and she is being discharged from the wound care center today. This stressed upon the patient continue with compression stockings to prevent recidivism of her chronic venous stasis ulcerations. I answered all the patient's questions. To return to the wound healing center as needed or call sooner if the patient has any questions or concerns.
--- NOTE | 2023-09-12 09:49 | ART_ITS ---
Reason For Study: LLE Ulcer Procedure A bilateral lower extremity continuous wave Doppler with analog waveform analysis,segmental pressures,and ankle brachial indexes without exercise. Left Segmental Pressures Left brachial= 162mmHg. Left posterior tibial artery = 164mmHg. Left dorsalis pedis artery = >254mmHg. Left digit = 139 mmHg. The left posterior tibial artery waveforms are triphasic. The left dorsalis pedis waveforms are triphasic. Right Segmental Pressures Right brachial= 160mmHg. Right posterior tibial artery = 163mmHg. Right dorsalis pedis artery = >254mmHg. Right digit = 131 mmHg. The right posterior tibial artery waveforms are triphasic. The right dorsalis pedis waveforms are triphasic. Indices The right ankle brachial index by the posterior tibial artery is 1.01. The right ankle brachial index by the dorsalis pedis is N/C. The right digital-brachial index is 0.81. The left ankle brachial index by the posterior tibial artery is 1.01. The left ankle brachial index by the dorsalis pedis is N/C. The left posterior tibial artery index post exercise is 0.86. VL/Lower Ext Art Exam w/o Exercis Interpretation Summary Triphasic Doppler waveforms are noted at ankle level bilaterally. Pulse-volume recordings appear diminished at digital level bilaterally, but satisfactory at all other levels. Resting ankle- brachial indices are normal bilaterally. Digital-brachial indices are normal bi laterally. There is no evidence of significant arterial occlusive disease in the lower ext remities bilaterally. Ordering Physician: Chapito Patel Referring Physician: MD Zandra Alexey Performed By: Ej Louis, ERICT
--- NOTE | 2023-09-12 09:50 | VDLE_ITS ---
Reason For Study: LLE Ulcer RIGHT LEFT CFV is compressible, spontaneous, phasic, CFV is compressible, spontaneous, phasic, competent and demonstrates normal competent, and demonstrates normal augmentation. augmentation. FV is compressible, spontaneous, phasic, FV is compressible, spontaneous, phasic, competent and demonstrates normal competent and demonstrates normal augmentation. augmentation. POP V is compressible, spontaneous, phasic, POP V is compressible, spontaneous, phasic, competent and demonstrates normal competent and demonstrates normal augmentation. augmentation. T/P Trunk is compressible. T/P Trunk is compressible. PTV is compressible. PTV is compressible. RT PerV is compressible. LT PerV is compressible. SFJ is competent and measures 0.61 cm. SFJ is competent and measures 0.59 cm. GSV proximal thigh measures 0.62 x 0.68 cm. GSV proximal thigh measures 0.61 x 0.66 cm. GSV at knee measures 0.45 x 0.46 cm. GSV at knee measures 0.50 x 0.55 cm. GSV is competent throughout. GSV is competent throughout. SSV proximal calf is competent and measures SSV proximal calf is competent and measures 0.21x 0.20 cm. 0.43 x 0.38 cm. Procedure Exam performed in department. This is a venous duplex using B-mode, color flow and spectral Doppler. The exam was diagnostic. Patient was scanned in reverse Trendelenburg position during reflux assessment. VL/Venous Duplex US - Inocencio Extrem Interpretation Summary Deep veins of the lower extremities are bilaterally patent and compressible seg mentally. There is no evidence of deep vein thrombosis on either side. Valvular competence appears in tact within the proximal deep venous systems bilaterally. The great saphenous veins appear bila terally patent and compressible segmentally. Sapheno-femoral junctions are bilaterally competent . Valvular competence appears to be intact segmentally within the great saphenous veins bilaterally. Small saphenous veins are patent and competent bilaterally. Ordering Physician: Chapito Patel Referring Physician: Elodia Tabares Performed By: Ej Louis RVT
--- NOTE | 2023-09-19 13:16 | WC ---
reviewed pts vascular studies w/ dr gentile this am. per dr gentile ok to call her and give her results, stating everything looked good. done.
== END 2023-09-12 14:09 | disposition home or self-care (01) ==
LOC: CVS 10:00
PROVIDERS: PCP Family Medicine; Referring Provider Nurse Practitioner Family; Visit Provider Student in an Organized Health Care Education/Training Program
DX: E11.59 Type 2 diabetes mellitus with other circulatory complications (principal); I25.10 Atherosclerotic heart disease of native coronary artery without angina pectoris; R60.0 Localized edema; E78.5 Hyperlipidemia, unspecified; I89.0 Lymphedema, not elsewhere classified; L97.222 Non-pressure chronic ulcer of left calf with fat layer exposed; I10 Essential (primary) hypertension; I87.2 Venous insufficiency (chronic) (peripheral); M79.662 Pain in left lower leg; M79.661 Pain in right lower leg; Z79.899 Other long term (current) drug therapy
CPT/HCPCS: 29580; 29581; 93923; 93970; 99213; 99214; G0463